=== PATIENT | male | born 1970 | race Caucasian/White ===

== ENCOUNTER 2016-09-02 07:20 | Day surgery (SDC) | payer MEDICAID ==
[2016-08-30 14:44] LABS: HEMATOCRIT 54.9 % (42.0-54.0); HEMOGLOBIN 19.3 g/dL (13.5-17.5); MCH 35.1 pg (26.0-34.0); MCHC 35.2 g/dL (31.0-37.0); MCV 99.8 fL (80.0-100.0); MEAN PLATELET VOLUME 10.9 fL (7.4-10.4); RBC 5.5 10x6/uL (4.20-6.10); RDW 13.1 % (11.5-14.5); WBC 8.2 10x3/uL (4.8-10.8)
[2016-08-30 15:15] LABS: CALC OSMOLALITY 281 mosm/kg (275-300); CALCIUM 9.5 mg/dL (8.5-10.1); CARBON DIOXIDE 28.3 mmol/L (21.0-32.0); CHLORIDE - SERUM 103 mmol/L (98-107); CREATININE - SERUM 1.1 mg/dL (0.6-1.3); GLUCOSE 93 mg/dL (74-106); POTASSIUM - SERUM 4.1 mmol/L (3.5-5.1); SODIUM 141 mmol/L (136-145); UREA NITROGEN 15 mg/dL (7-18); eGFR NON AFRICAN AMERICAN 76 mL/min (90-120)
[~2016-09-02] VITALS: Ht 172.7 cm; Wt 76.7 kg
[~2016-09-02 07:20] MED LIST: ATARAX 25 MG TA25 MG PO; CATAPRES0.1 MG PO; FUROSEMIDE20 MG PO; K-DUR20 MEQ PO; LOPRESSOR25 MG PO; NICODERM C1 PATCH .1 TRANSDERM; PROAIR HFA8.5 GM INH; PROTONIX40 MG PO; ZESTRIL40 MG PO
[2016-09-02 09:16] VITALS: BP 112/68; Ht 172.7 cm; Wt 76.7 kg
[2016-09-02] MEDS ORDERED: HYDROCODON-ACE1 EAC7 PO (13:09)
--- NOTE | 2016-09-02 13:53 | NUR ---
1350 DILAUDID 1MG IV GIVEN FOR PAIN OF 10 .
--- NOTE | 2016-09-02 13:54 | NUR ---
1354 PAIN 12/19.
--- NOTE | 2016-09-02 18:19 | OP ---
PATIENT NAME: YEISON HERNDON MEDICAL RECORD: [id number] :66 LOCATION:[facility] ADMISSION DATE: SURGEON: RUSTY FATIMA MD DATE OF OPERATION: 09/02/2016 SURGEON: Rusty Fatima M.D. PREOPERATIVE DIAGNOSIS: Gallbladder polyp. POSTOPERATIVE DIAGNOSIS: Gallbladder polyp. PROCEDURE PERFORMED: Laparoscopic cholecystectomy. ANESTHESIA: General. COMPLICATIONS: None. SPECIMENS: Gallbladder. Case was clean contaminated. ESTIMATED BLOOD LOSS: 30 cc. OPERATIVE COURSE: After consent was obtained, the patient was taken to the operating room and placed in the supine position on the operating table. Next, general anesthesia was given via endotracheal intubation after a timeout was performed to confirm the correct patient and procedure. The abdomen was then prepped and draped in typical sterile fashion. Local anesthetic was injected just above the umbilicus. A stab incision was made with 11-blade scalpel. Using a 5-mm bladeless optical trocar, the abdomen was entered under direct laparoscopic vision. Adequate pneumoperitoneum was achieved. The abdominal cavity was inspected. No evidence of bowel injury. No evidence of bleeding. At this time, the patient was placed in the steep reverse Trendelenburg position. All remaining trocars were then placed after the administration of local anesthetic under direct laparoscopic vision, two 5-mm trocars in the right upper quadrant and 11-mm trocar in the subxiphoid position. The fundus of the gallbladder was grasped and retracted cephalad. The infundibulum was grasped and retracted laterally. The peritoneum was incised using electrocautery. Blunt dissection was performed with a [place] dissector until the critical view was obtained. Cystic duct lateral, cystic artery medial, liver in the posterior window. Three clips were placed in the proximal cystic duct, 1 clip distal and 2 clips were placed in the proximal cystic artery. The duct and artery were then transected with laparoscopic Metzenbaum scissors. The remaining portion of the gallbladder was then dissected off the liver bed using electrocautery. It was grasped with the tenaculum and removed through the 11-mm trocar and sent for permanent pathology. Next, the operative site was copiously irrigated and suctioned. Careful attention was paid to hemostasis, which was obtained in the liver bed using electrocautery. Again, the operative field was irrigated and suctioned. The operative site was inspected. There were [address] in the cystic duct, [address] in the cystic artery. There was no evidence of bleeding noted. No evidence of bowel injury. No evidence of bile leak. At this time, the abdominal cavity was inspected. There was no evidence of bowel injury. No evidence of bleeding. All remaining instruments were removed. The abdomen was desufflated. Trocars were removed. The skin was closed with 4-0 Monocryl, Mastisol and Steri-Strips. At the end of the case, all needle and OPERATIVE REPORT [id number] YEISON HERNDON instrument counts were correct. No complications occurred. The patient was extubated and transferred to PACU in stable condition. TRANSINT:[id number] Voice Confirmation ID: [id number] DOCUMENT ID: [id number] RUSTY FATIMA MD at 1819 CC: [id number] DICTATION DATE: 09/02/16 1315 HEAD BELLHOP CAPTAIN: 09/02/16 1803 [facility] [address] [place] [address]
== END 2016-09-02 17:40 | disposition home or self-care (01) ==
LOC: D.OPS 07:20 → D.PAN 09:30 → D.OPS 09:30 → D.PAN 09:45 → D.OPS 10:30 → D.PAN 11:30 → D.OPS 17:40
PROVIDERS: Anesthesiology
DX: K80.10 Calculus of gallbladder with chronic cholecystitis without obstruction (principal); K82.4 Cholesterolosis of gallbladder

== ENCOUNTER → 2017-02-18 09:49 | Outpatient (CLI) | payer MEDICAID ==
[2016-09-02 09:16] VITALS: BMI 25.7
[~2017-02-18 09:49] MED LIST changes: +HYDROCHLOROTH12.5 M1 PO; +HYDROCODON-ACE1 EAC7 PO; +NORVASC10 MG PO; +ZEBETA10 MG PO
[2017-02-18 10:30] LABS: BASOPHILS 0.1 % (0-2); EOSINOPHILS 1.1 % (0-7); HEMATOCRIT 50.8 % (42.0-54.0); HEMOGLOBIN 18.3 g/dL (13.5-17.5); IMMATURE GRANULOCYTES 0.4 % (0-5); LYMPHOCYTES 17.6 % (15-50); MCH 34.8 pg (26.0-34.0); MCV 96.6 fL (80.0-100.0); MEAN PLATELET VOLUME 10.8 fL (7.4-10.4); MONOCYTES 9.1 % (2-11); NEUTROPHILS 71.7 % (40-80); PLATELET COUNT 173 10x3/uL (130-400); RBC 5.26 10x6/uL (4.20-6.10); RDW 12.4 % (11.5-14.5); WBC 7.5 10x3/uL (4.8-10.8)
[2017-02-18 10:45] LABS: APTT 26.3 SECONDS (22.8-39.4); INR 1.02 (0.85-1.17); PROTIME 13.2 SECONDS (11.6-15.0)
[2017-02-18 11:03] LABS: % SATURATION 25 % (15-55); IRON 110 ug/dl (35-150); TOTAL IRON BIND CAPACITY 435 ug/dl (260-445); UNSAT IRON BIND CAPACITY 325 ug/dl (150-375)
[2017-02-18 11:04] LABS: ALBUMIN 3.3 g/dL (3.4-5.0); ALKALINE PHOSPHATASE 122 U/L (46-116); ALT (SGPT) 103 U/L (10-68); BILIRUBIN - DIRECT 0.15 mg/dL (0.00-0.30); BILIRUBIN - INDIRECT 0.34 mg/dL (0.00-1.00); BILIRUBIN - TOTAL 0.49 mg/dL (0.2-1.3); CALC OSMOLALITY 278 mosm/kg (275-300); CALCIUM 8.7 mg/dL (8.5-10.1); CARBON DIOXIDE 25.5 mmol/L (21.0-32.0); CHLORIDE - SERUM 103 mmol/L (98-107); CHOL - HDL RATIO 4.9 ratio (2.3-4.9); CHOLESTEROL, TOTAL 194 mg/dL (0-200); CREATININE - SERUM 1.1 mg/dL (0.6-1.3); FERRITIN 124 ng/mL (3-244); GAMMA GT 323 U/L (5-85); GLUCOSE 113 mg/dL (74-106); HDL CHOLESTEROL 40 mg/dL (32-96); LDL CHOLESTEROL 128 mg/dL (0-100); LDL-HDL RATIO 3.2 ratio (1.5-3.5); PROTEIN - SERUM 7.7 g/dL (6.4-8.2); SODIUM 140 mmol/L (136-145); TRIGLYCERIDE 130 mg/dL (30-200); UREA NITROGEN 10 mg/dL (7-18); eGFR NON AFRICAN AMERICAN 75 mL/min (90-120)
[2017-02-19 08:19] LABS: FOLATE (FOLIC ACID) - SERUM 4.4 ng/mL (>3.0); HEPATITIS C ANTIBODY 0.1 (0.0-0.9)
[2017-02-19 10:20] LABS: HAPTOGLOBIN 147 mg/dL (34-200)
[2017-02-19 11:18] LABS: ANA REFLEX - DIRECT Negative (Negative)
[2017-02-19 13:17] LABS: ALPHA FETOPROTEIN -(TUMOR MRK) 2.5 ng/mL (0.0-8.3)
[2017-02-20 15:23] LABS: MITOCHONDRIAL ANTIBODY 19.1 Units (0.0-20.0); SMOOTH MUSCLE ABS (ACTIN) 16 Units (0-19)
== END | disposition home or self-care (01) ==
LOC: D.LAB 09:49
PROVIDERS: Internal Medicine Gastroenterology
DX: R74.8 Abnormal levels of other serum enzymes (principal); R16.0 Hepatomegaly, not elsewhere classified

== ENCOUNTER → 2017-03-11 14:03 | Outpatient (CLI) | payer MEDICAID ==
[2016-09-02 09:16] VITALS: BMI 25.7
== END | disposition home or self-care (01) ==
LOC: D.NM 14:03
DX: R11.2 Nausea with vomiting, unspecified (principal); R10.9 Unspecified abdominal pain

== ENCOUNTER → 2017-03-20 08:57 | Outpatient (CLI) | payer MEDICAID ==
[2016-09-02 09:16] VITALS: BMI 25.7
== END | disposition home or self-care (01) ==
LOC: D.RAD 08:57
DX: K21.9 Gastro-esophageal reflux disease without esophagitis (principal)

== ENCOUNTER 2017-03-24 06:57 | Inpatient (IN) | payer MEDICAID ==
[~2017-03-24] VITALS: Ht 172.7 cm; Wt 79.5 kg
[2017-03-24] VITALS (9 sets, daily range): BP systolic 108–129; BP diastolic 75–86; Ht 172.7 cm; Wt 79.5 kg
[~2017-03-24 06:57] MED LIST changes: -HYDROCHLOROTH12.5 M1 PO; -ZEBETA10 MG PO
[2017-03-24 07:32] LABS: HEMATOCRIT 53.8 % (42.0-54.0); HEMOGLOBIN 19.3 g/dL (13.5-17.5); MCHC 35.9 g/dL (31.0-37.0); MCV 94.7 fL (80.0-100.0); MEAN PLATELET VOLUME 11.3 fL (7.4-10.4); RBC 5.68 10x6/uL (4.20-6.10); RDW 11.8 % (11.5-14.5); WBC 10.7 10x3/uL (4.8-10.8)
[2017-03-24 07:46] LABS: ANION GAP 17.9 mmol/L (8-16); CALCIUM 9.4 mg/dL (8.5-10.1); CARBON DIOXIDE 22.9 mmol/L (21.0-32.0); CREATININE - SERUM 1.2 mg/dL (0.6-1.3)
[2017-03-24 07:49] LABS: POTASSIUM - SERUM 2.8 mmol/L (3.5-5.1)
[2017-03-24] MEDS ORDERED: PROTONIX40 MG PO (07:52)
[2017-03-24] MEDS ORDERED: ZEBETA10 MG PO (07:53)
[2017-03-24] MEDS ORDERED: HYDROCHLOROTH12.5 M1 PO (07:54)
--- NOTE | 2017-03-24 08:47 | NUR ---
0820 NICHOLAS FRONT OR DESK NOTIFIED TO INFORM DR. FATIMA AND ANESTHESIA OF POTASSIUM OF 2.8 STATES ONLY LAPAROSCOPIC PARAESOPHAGEAL HERNIA REPAIR. 0888 MESSAGE RECEIVED THAT IS FINE FOR THE POTASSIUM, NO NEW ORDERS.
--- NOTE | 2017-03-24 12:00 | NUR ---
PATIENT SITTING UP IN BED WITH IV INTACT. STERI STRIPS OVER PATIENT INCISIONS CLEAN AND DRY. PATIENT STATES PAIN IS AN 8. VS STABLE. 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 VERBALIZED UNDERSTANDING. NO OTHER COMPLAINTS AT THIS TIME. CALL LIGHT WITHIN REACH.
--- NOTE | 2017-03-24 13:46 | OP ---
PATIENT NAME: YEISON HERNDON MEDICAL RECORD: [id number] :66 LOCATION:[facility] ADMISSION DATE: SURGEON: RUSTY FATIMA MD DATE OF OPERATION: 03/24/2017 SURGEON: Rusty Fatima MD PREOPERATIVE DIAGNOSES: 1. Gastroesophageal reflux disease. 2. Paraesophageal hernia. 3. Essential hypertension. 4. Nicotine dependence. POSTOPERATIVE DIAGNOSES: 1. Gastroesophageal reflux disease. 2. Paraesophageal hernia. 3. Essential hypertension. 4. Nicotine dependence. PROCEDURE PERFORMED: 1. Laparoscopic paraesophageal hernia repair. 2. Laparoscopic Jules fundoplication. ANESTHESIA: General. COMPLICATIONS: None. SPECIMENS: None. The case was clean. ESTIMATED BLOOD LOSS: 30 cc. OPERATIVE COURSE: After consent was obtained, the patient was taken to the operating room and placed in the supine position on the operating table. Next, general anesthesia was given via endotracheal intubation. Thereafter, a timeout was performed to confirm the correct patient and procedure. The abdomen was prepped and draped in typical sterile fashion. Local anesthetic was injected just above the umbilicus. A stab incision was made with 11-blade scalpel. Using a 10-mm bladeless optical trocar, the abdomen was entered under direct laparoscopic vision. Adequate pneumoperitoneum was achieved. The abdominal cavity was inspected. No evidence of bowel injury. No evidence of bleeding. The patient was placed in the steep reverse Trendelenburg position. All remaining trocars were placed after the administration of local anesthetic, a 12-mm trocar and 5-mm trocar in the right lateral quadrant, 5-mm trocar in the left lateral quadrant and Nellie retractor in the subxiphoid position. The left lobe of the liver was retracted exposing the gastroesophageal junction. The upper third of the stomach including the cardia was visibly within the mediastinum. The stomach was reduced. The stomach was mobilized along the cardia The short gastrics were taken along the upper third of the greater curve using the Harmonic scalpel. This dissection continued to the level of the left crura. The left crura was skeletonized. The hernia sac was excised along the left crura. Next, the gastrohepatic ligament was opened using Harmonic scalpel. Dissection continued to the level of the right crura. Again, the right crura was skeletonized. The hernia sac was excised using Harmonic scalpel. The OPERATIVE REPORT [id number] YEISON HERNDON hernia sac was then circumferentially dissected using the Harmonic scalpel. Dissection continued into the mediastinal until approximately 5-6 cm of intraabdominal esophagus were obtained. Efren was applied within the mediastinum. The hiatal hernia was closed using 0 polypropylene Stratafix suture. Once the crura was reapproximated, the cardia of the stomach was passed. The hernia sac was excised in totality from the GE junction with the Harmonic scalpel. Next, the cardia was passed posterior to the gastroesophageal junction. A loose floppy Jules was performed with a 3-0 Stratafix suture. Once this was complete, the abdominal cavity was inspected. There was no evidence of bowel injury or evidence of bleeding. The upper abdomen was copiously irrigated and suctioned. There was no evidence of bowel injury. No evidence of bleeding. At this time, the remaining portion of the abdominal cavity inspected. There is no evidence of bowel injury. No evidence of bleeding. The Nellie liver retractor was removed. The 2 larger trocar sites were closed with 0 Vicryl suture and a Braeden-Ariella suture passer under direct laparoscopic vision. At this time, all remaining instruments were removed. The abdomen was desufflated. Trocars were removed. Skin was closed with 4-0 Monocryl, Mastisol and Steri-Strips. At the end of the case, all needle and instrument counts were correct. No complications occurred. The patient was extubated and transferred to the PACU in stable condition. TRANSINT:[id number] Voice Confirmation ID: [id number] DOCUMENT ID: [id number] RUSTY FATIMA MD at 1346 CC: [id number] DICTATION DATE: 03/24/17 1126 BUILDING MAINTENANCE REPAIRER: 03/24/17 1233 [facility] [address] [place] [address]
--- NOTE | 2017-03-24 14:00 | NUR ---
PATIENT IN BED WITH IV INTACT. NO COMPLAINTS AT THIS TIME. VS STABLE. CALL LIGHT WIHTIN REACH. TOLERATED CLEAR LIQUIDS WITH NO N/V.
--- NOTE | 2017-03-24 17:00 | NUR ---
PATIENT UP AMBULATING IN [place]IS.
--- NOTE | 2017-03-24 18:37 | NUR ---
PATIENT IN BED WITH IV INTACT. NO COMPLAINTS. CALL LIGHT WITHIN REACH.
--- NOTE | 2017-03-24 19:30 | NUR ---
A&O, DENIES NEEDS, NO DISTRESS NOTED, SOME PAIN DURING URINATION, ASKED IF HE COULD WALK AROUND UNIT (WALKED 500FT), BED LOWEST POSITION, CALL LIGHT IN REACH, WILL CONTINUE TO MONITOR
--- NOTE | 2017-03-25 02:00 | NUR ---
PT RESTING IN BED WITH NO DISTRESS. RESPIRATIONS EVEN AND UNLABORED. SIDE RAILS X 2. BED LOW. CALL LIGHT IN REACH.
[2017-03-25 04:00] VITALS: BP 116/80
[2017-03-25 05:37] LABS: BASOPHILS 0.2 % (0-2); EOSINOPHILS 2.4 % (0-7); HEMATOCRIT 48.8 % (42.0-54.0); HEMOGLOBIN 16.6 g/dL (13.5-17.5); IMMATURE GRANULOCYTES 0.2 % (0-5); LYMPHOCYTES 12.1 % (15-50); MCH 33.1 pg (26.0-34.0); MONOCYTES 11.8 % (2-11); NEUTROPHILS 73.3 % (40-80); RBC 5.02 10x6/uL (4.20-6.10); WBC 8.3 10x3/uL (4.8-10.8)
[2017-03-25 05:48] LABS: MCV 97.2 fL (80.0-100.0); PLATELET COUNT 132 10x3/uL (130-400)
[2017-03-25 06:00] LABS: ALBUMIN 2.9 g/dL (3.4-5.0); BILIRUBIN - TOTAL 1.15 mg/dL (0.2-1.3); CALCIUM 8.5 mg/dL (8.5-10.1); CREATININE - SERUM 1.2 mg/dL (0.6-1.3); PROTEIN - SERUM 6.6 g/dL (6.4-8.2)
[2017-03-25 06:08] LABS: ANION GAP 10.9 mmol/L (8-16); CARBON DIOXIDE 29.8 mmol/L (21.0-32.0); POTASSIUM - SERUM 2.7 mmol/L (3.5-5.1)
--- NOTE | 2017-03-25 07:00 | NUR ---
REPORT RECIEVED ASSUMED CARE. PATIENT IN BED WITH IV INTACT. NO COMPLAINTS AT THIS TIME. EYES CLOSED RESTING QUIETLY. CALL LIGHT WITHIN REACH.
--- NOTE | 2017-03-25 07:38 | NUR ---
PATIENT RECIEVED TORADOL IVP SLOWLY OVER 1 MINUTE. PATIENT IV INTACT. NO OTHER COMPLAINTS. CALL LIGHT WITHIN REACH. FAMILY AT BEDSIDE.
[2017-03-25 10:18] VITALS: BP 98/68
--- NOTE | 2017-03-25 10:50 | NUR ---
PATIENT UP AMBULATING IN ROOM AT THIS TIME. IV INTACT. CALL LIGHTW ITHIN REACH.
[2017-03-25] MEDS ORDERED: HYDROCODON-ACE1 EAC7 PO (10:54)
[2017-03-25 12:17] VITALS: BP 102/71
[2017-03-25 15:46] VITALS: BP 110/68
--- NOTE | 2017-03-25 15:47 | NUR ---
PATIENT RECIEVED DC INSTRUCTIONS. VERBALIZED UNDERSTANDING. NO QUESTIONS AT THIS TIME. IV REMOVED WITH CATH TIP INTACT. PATIENT FAMILY AT BEDSIDE. CALL LIGHT WITHIN REACH.
== END 2017-03-25 16:00 | disposition home or self-care (01) | DRG 327 ==
LOC: D.OPS 06:57 → D.MS 06:57 → D.PAN 09:30 → D.OPS 09:30 → EDSTATUS 09:30 → D.OPS 11:55 → D.MS 11:55 → D.OPS 11:56 → D.MS 03-25 16:00
PROVIDERS: Anesthesiology; ADMIT Surgery
PROC: 0DV44ZZ Restriction of Esophagogastric Junction, Percutaneous Endoscopic Approach (ICD-10-PCS; principal; 2017-03-24 09:30)
PROC: 0BQT4ZZ Repair Diaphragm, Percutaneous Endoscopic Approach (ICD-10-PCS; 2017-03-24 09:30)
DX: K44.9 Diaphragmatic hernia without obstruction or gangrene (principal); F17.203 Nicotine dependence unspecified, with withdrawal; K21.9 Gastro-esophageal reflux disease without esophagitis; I10 Essential (primary) hypertension

== ENCOUNTER → 2017-04-11 10:11 | Outpatient (CLI) | payer MEDICAID ==
[2017-03-24 12:10] VITALS: BMI 26.6
[~2017-04-11 10:11] MED LIST changes: +HYDROCHLOROTH12.5 M1 PO; +ZEBETA10 MG PO
[2017-04-11 10:46] LABS: ALBUMIN 3.5 g/dL (3.4-5.0); BILIRUBIN - DIRECT 0.18 mg/dL (0.00-0.30); BILIRUBIN - INDIRECT 0.21 mg/dL (0.00-1.00); BILIRUBIN - TOTAL 0.39 mg/dL (0.2-1.3); PROTEIN - SERUM 7.9 g/dL (6.4-8.2)
== END | disposition home or self-care (01) ==
LOC: D.LAB 04-10 10:15
PROVIDERS: Internal Medicine Gastroenterology
DX: R74.8 Abnormal levels of other serum enzymes (principal)

== ENCOUNTER 2017-04-25 06:37 | Outpatient (CLI) | payer MEDICAID ==
[~2017-04-25] VITALS: Ht 172.7 cm; Wt 75.0 kg
[2017-04-25 07:23] LABS: BASOPHILS 0.2 % (0-2); EOSINOPHILS 2.4 % (0-7); HEMATOCRIT 49.5 % (42.0-54.0); HEMOGLOBIN 17.8 g/dL (13.5-17.5); IMMATURE GRANULOCYTES 0.3 % (0-5); LYMPHOCYTES 15.5 % (15-50); MCH 32.8 pg (26.0-34.0); MCV 91.3 fL (80.0-100.0); MEAN PLATELET VOLUME 10.9 fL (7.4-10.4); MONOCYTES 10.3 % (2-11); NEUTROPHILS 71.3 % (40-80); RBC 5.42 10x6/uL (4.20-6.10); RDW 12.4 % (11.5-14.5); WBC 9.6 10x3/uL (4.8-10.8)
[2017-04-25 07:33] LABS: CALC OSMOLALITY 283 mosm/kg (275-300); CALCIUM 9.3 mg/dL (8.5-10.1); CARBON DIOXIDE 26.4 mmol/L (21.0-32.0); CHLORIDE - SERUM 103 mmol/L (98-107); CREATININE - SERUM 1.1 mg/dL (0.6-1.3); GLUCOSE 143 mg/dL (74-106); SODIUM 142 mmol/L (136-145); UREA NITROGEN 11 mg/dL (7-18); eGFR NON AFRICAN AMERICAN 75 mL/min (90-120)
[2017-04-25 07:48] LABS: PLATELET COUNT 171 10x3/uL (130-400)
[2017-04-25 08:10] LABS: APTT 27.3 SECONDS (22.8-39.4); PROTIME 12.8 SECONDS (11.6-15.0)
[2017-04-25 08:43] VITALS: BP 116/50; Ht 172.7 cm; Wt 75.0 kg
--- NOTE | 2017-04-25 12:52 | NUR ---
IV DC WITH CATHER TIP INTACT
--- NOTE | 2017-04-25 13:47 | NUR ---
1300 VS TAKEN AND CHART ON POST OP SHEET AND PLACED IN CHART
== END 2017-04-25 13:00 | disposition home or self-care (01) ==
LOC: D.OPS 06:37 → D.SP 09:00 → D.OPS 13:00
PROVIDERS: Specialist
DX: R16.0 Hepatomegaly, not elsewhere classified (principal); R79.89 Other specified abnormal findings of blood chemistry; Z01.812 Encounter for preprocedural laboratory examination